=== PATIENT | female | born 1985 | race Caucasian/White ===

== ENCOUNTER 2019-01-24 07:28 | Outpatient (CLI) | payer OTHER ==
--- NOTE | 2019-01-24 08:06 | ULT ---
Exam: Right upper quadrant ultrasound: HISTORY: Fatty infiltration of the liver. COMPARISON: 04/14/2014 FINDINGS: Liver: Again, the liver demonstrates diffuse increased echogenicity most compatible with diffuse fatt y infiltration. Liver is enlarged measuring 18 cm in craniocaudal dimensions. Gallbladder: Incompletely distended, but no gallbladder calculi are seen. Common bile duct: The common duct is normal in caliber measuring 0.4 cm in diameter. Pancreas: Limited visualized portions of the pancreas demonstrate a normal sonographic appearance. Right kidney: Right kidney demonstrates a normal sonographic appearance. The right kidney measures 1 2.2 cm in length. IVC: The visualized IVC demonstrates a normal sonographic appearance. IMPRESSION: 1. Hepatomegaly with diffuse fatty infiltration of the liver unchanged from prior exam in 2013. 2. No gallbladder calculi are seen.
== END 2019-01-24 07:29 | disposition home or self-care (01) ==
LOC: ULT 07:28
PROVIDERS: ATTEND Family Medicine
DX: K76.0 Fatty (change of) liver, not elsewhere classified (principal); R16.0 Hepatomegaly, not elsewhere classified
CPT/HCPCS: 76705